=== PATIENT | male | born 1970 | race Caucasian/White ===

== ENCOUNTER 2018-02-20 21:41 | Emergency (ER) | payer OTHER ==
[2018-02-20 21:45] VITALS: BP 135/89; TEMP 98
[2018-02-20] MEDS ORDERED: DIOVAN HCT 12.51 TA2 PO (22:49)
[2018-02-20] MEDS ORDERED: PRAVACHOL 20MG20 MG PO (22:49)
[2018-02-20 22:53] VITALS: PULSE 89
== END 2018-02-20 22:52 | disposition home or self-care (01) ==
LOC: COL.ER 21:41
DX: S40.861A Insect bite (nonvenomous) of right upper arm, initial encounter (principal)